=== PATIENT | female | born 1970 | race Caucasian/White ===

== ENCOUNTER 2018-06-20 23:29 | Emergency (ER) | payer OTHER ==
--- NOTE | 2018-06-20 23:52 | EDPHY ---
H & P Stated Complaint: right side of neck swelling, was sick then better now with swelling to neck Time Seen by Provider: 06/20/18 23:36 HPI/ROS: Chief Complaint: Neck swelling HPI: 39-year-old woman presenting with worsening right-sided neck swelling for the last couple days. Patient states that she had a sore throat a week and half ago but those symptoms resolved. She has had persistent cold-like symptoms. Over the course of the last 24 hr she has had worsening right-sided neck pain with swelling. Tonight she noticed significant swelling in the right side of her neck. Throat is not sore. No difficulty swallowing. No difficulty breathing. No history of similar episodes in the past. No fevers or chills. ROS: 10 systems were reviewed and were negative except those elements noted in the HPI. PMH: Denies Social History: No smoking, no alcohol, no recreational drug use Family History: non-contributory Physical Exam: Gen: Awake, Alert, No Distress HEENT: Nose: no rhinorrhea Eyes: PERRLA, EOMI Mouth: Moist mucosa , mild right oropharyngeal erythema without edema or exudate Neck: Supple, no JVD, large right-sided neck mass which is tender, no overriding erythema Chest: nontender, lungs clear to auscultation Heart: S1, S2 normal, no murmur Abd: Soft, non-tender, no guarding Back: no CVA tenderness, no midline tenderness Ext: no edema, non-tender Skin: no rash Neuro: CN II-XII intact, Sensation grossly intact, Strength 5/5 in bilateral upper and lower extremities - Personal History LMP (Females 10-55): Now Current Tetanus/Diphtheria Vaccine: Yes Current Tetanus Diphtheria and Acellular Pertussis (TDAP): Yes - Medical/Surgical History Hx Asthma: No Hx Chronic Respiratory Disease: No Hx Diabetes: No Hx Cardiac Disease: No Hx Renal Disease: No Hx Cirrhosis: No Hx Alcoholism: No Hx HIV/AIDS: No Hx Splenectomy or Spleen Trauma: No Other PMH: denies - Social History Smoking Status: Never smoked Constitutional: Initial Vital Signs Temperature (C) 37.3 C 06/20/18 23:32 Heart Rate 82 06/20/18 23:32 Respiratory Rate 18 06/20/18 23:32 Blood Pressure 131/92 H 06/20/18 23:32 O2 Sat (%) 97 06/20/18 23:32 O2 Delivery Mode Room Air Allergies/Adverse Reactions: penicillin G Allergy (Verified 06/20/18 23:35) Home Medications: Medication Instructions Recorded Clindamycin HCl [Clindamycin] 300 mg PO QID #40 cap 06/21/18 Medical Decision Making - Diagnostics Imaging Results: CT scan of the neck shows a masslike hypodensity medial to the right sternocleidomastoid muscle that could be a necrotic or hypodense lymph node, phlegmon or developing abscess is possible. There is evidence of cellulitis in the right neck. His normal airway epiglottis and vascular structures. Study interpreted by Dr. Calderon Storm, direct Radiology. ED Course/Re-evaluation: Case discussed with Dr. Kvng Ely, [facility] doctor. He is requesting antibiotics and he will follow up with the patient in clinic. Patient will contact her PCP tomorrow to have a referral to Dr. Ely. Patient is allergic to penicillin. I will start her on clindamycin. IV dose here followed by prescription. - Data Points Laboratory Results: Laboratory Results 06/20/18 23:55 06/20/18 23:55 06/20/18 06/20/18 06/20/18 23:59 23:55 23:55 WBC 13.53 10^3/uL H 10^3/uL (3.80-9.50) RBC 3.82 10^6/uL L 10^6/uL (4.18-5.33) Hgb 12.5 g/dL L g/dL (12.6-16.3) POC Hgb 12.6 gm/dL gm/dL (12.6-16.3) Hct 36.3 % L % (38.0-47.0) POC Hct 37 % L % (38-47) MCV 95.0 fL fL (81.5-99.8) MCH 32.7 pg pg (27.9-34.1) MCHC 34.4 g/dL g/dL (32.4-36.7) RDW 11.6 % % (11.5-15.2) Plt Count 265 10^3/uL 10^3/uL (150-400) MPV 9.6 fL fL (8.7-11.7) Neut % (Auto) 84.5 % H % (39.3-74.2) Lymph % (Auto) 8.4 % L % (15.0-45.0) Dukes % (Auto) 5.5 % % (4.5-13.0) Eos % (Auto) 1.0 % % (0.6-7.6) Baso % (Auto) 0.2 % L % (0.3-1.7) Nucleat RBC Rel Count 0.0 % % (0.0-0.2) Absolute Neuts (auto) 11.44 10^3/uL H 10^3/uL (1.70-6.50) Absolute Lymphs (auto) 1.13 10^3/uL 10^3/uL (1.00-3.00) Absolute Monos (auto) 0.74 10^3/uL 10^3/uL (0.30-0.80) Absolute Eos (auto) 0.13 10^3/uL 10^3/uL (0.03-0.40) Absolute Basos (auto) 0.03 10^3/uL 10^3/uL (0.02-0.10) Absolute Nucleated RBC 0.00 10^3/uL 10^3/uL (0-0.01) Immature Gran % 0.4 % % (0.0-1.1) Immature Gran # 0.06 10^3/uL 10^3/uL (0.00-0.10) POC Sodium 139 mEq/L mEq/L (135-145) Sodium 137 mEq/L mEq/L (135-145) POC Potassium 3.5 mEq/L mEq/L (3.3-5.0) Potassium 3.8 mEq/L mEq/L (3.5-5.2) POC Chloride 102 mEq/L mEq/L (97-110) Chloride 105 mEq/L mEq/L (97-110) Carbon Dioxide 23 mEq/l mEq/l (22-31) Anion Gap 9 mEq/L mEq/L (6-14) POC BUN 5 mg/dL L mg/dL (7-23) BUN 7 mg/dL mg/dL (7-23) Creatinine 0.6 mg/dL mg/dL (0.6-1.0) POC Creatinine 0.5 mg/dL L mg/dL (0.6-1.0) Estimated GFR > 60 Glucose 102 mg/dL H mg/dL (70-100) POC Glucose 105 mg/dL H mg/dL (70-100) Calcium 8.5 mg/dL mg/dL (8.5-10.4) Medications Given: Discontinued Medications Clindamycin Phosphate/Dextrose (Cleocin 600 Mg (Premix)) 50 mls @ 100 mls/hr IV EDNOW ONE PRN Reason: Protocol Stop: 06/21/18 02:15 Last Admin: 06/21/18 02:05 Dose: 50 mls Point of Care Test Results: Chemistry 06/20/18 23:59 POC Sodium 139 mEq/L mEq/L (135-145) POC Potassium 3.5 mEq/L mEq/L (3.3-5.0) POC Chloride 102 mEq/L mEq/L (97-110) POC BUN 5 mg/dL L mg/dL (7-23) POC Creatinine 0.5 mg/dL L mg/dL (0.6-1.0) POC Glucose 105 mg/dL H mg/dL (70-100) ISTAT H&H 06/20/18 23:59 POC Hgb 12.6 gm/dL gm/dL (12.6-16.3) POC Hct 37 % L % (38-47) Departure - Departure Disposition: Home, Routine, Self-Care Clinical Impression: Neck abscess Condition: Good Instructions: Abscess (ED) Additional Instructions: Contact your primary physician at [facility] tomorrow to arrange for a referral to Dr. Kvng Ely, [facility] in the next 1-2 days. Please take your full course of antibiotics. Take ibuprofen, 600 mg every 8 hr. You may alternate with acetaminophen, 1000 mg every 8 hr. Return to the emergency depart for worsening swelling, worsening pain, difficulty swallowing, difficulty breathing, or any other concerns. Referrals: CECELIA RIOS [Other] - As per Instructions Prescriptions: Clindamycin HCl [Clindamycin] 300 mg PO QID #40 cap
[2018-06-20] MEDS ORDERED: IOPAMIDOL (ISOVUE 370) 100 ML BTL IV ONE (23:54)
[2018-06-21 00:07] LABS: PLATELET COUNT 265 10^3/uL (150-400)
[2018-06-21] MEDS ORDERED: CLINDAMYCIN 600 MG/DEXTROSE 50 ML IV ONE (01:46)
[2018-06-21 02:42] VITALS: BP 111/77
== END 2018-06-21 02:41 | disposition home or self-care (01) ==
DX: R22.1 Localized swelling, mass and lump, neck (principal)
CPT/HCPCS: 82435-PO; 82565-PO; 82947-PO; 84132-PO; 84295-PO; 84520-PO; 85014-ER; 96374; Q9967